=== PATIENT | male | born 1960 ===

== ENCOUNTER 2024-06-25 07:40 | Observation (INO) ==
[~2024-06-25 07:40] MED LIST: Lidocaine 2% PF 5 ML VIAL ONE; Midazolam 2 mg/2 ml VIAL 1 mg/ml 2 ml VIAL (2 mg) ONE; NS 0.45% 1000 ml BAG 1,000 ML IV SCH; Naloxone 0.4 mg VIAL 0.4 mg/ml 1 ml VIAL IV PRN; Ondansetron 4 mg VIAL 2 MG/ML 2 ml VIAL IV PRN; Propofol 10 MG/ML 20 ML BTL ONE; fentaNYL 100 mcg/2 ml 50 MCG/ML VIAL IV PRN; fentaNYL 100 mcg/2 ml 50 MCG/ML VIAL ONE
[2024-06-25] MEDS: Buffered Lidocaine 1% SYRIN 1 ml INTRADERM ONE (08:02)
[2024-06-25] MEDS ORDERED: Chlorhexidine MOUTHWASH 0.12% 15 ML UDC ONE (08:13)
[2024-06-25] MEDS ORDERED: ceFAZolin 2 GM PREMIX 2 GM/50 ML BAG ONE (08:13)
[2024-06-25 08:17] LABS: Rapid COVID-19 Molecular Undetected (Undetected)
[2024-06-25] MEDS: Lactated Ringers 1000 ml BAG 1,000 ML IV SCH ×2 (08:35→14:57)
[2024-06-25] MEDS ORDERED: Thrombin 5,000 UNITS(BOVINE) for Ultrasound Guided Pseudoaneursym ONE (10:02)
[2024-06-25] MEDS ORDERED: Lidocaine 1% w EPI 1:100,000 MDV 20 ML VIAL ONE (10:02)
[2024-06-25] MEDS ORDERED: ceFAZolin VIAL VIAL ONE (10:03)
[2024-06-25] MEDS ORDERED: HYDROmorphone 0.5 MG/0.5 ML SYRINGE ONE ×3 (10:44→12:39)
[2024-06-25] MEDS ORDERED: Senna TAB 8.6 mg TAB PO PRN (13:13)
[2024-06-25] MEDS ORDERED: Ondansetron 4 mg VIAL 2 MG/ML 2 ml VIAL IV PRN (13:13)
[2024-06-25] MEDS ORDERED: Phenol 1.4% Throat Spray BTL MT PRN (13:13)
[2024-06-25] MEDS ORDERED: Morphine 2 MG/ML SYRINGE IV PRN (13:13)
[2024-06-25] MEDS ORDERED: Dextran 70/Hypromellose Tears Eye Drops 15 ml BTL (for Artificials Tears) BOTH EYES PRN (13:13)
[2024-06-25] MEDS ORDERED: Benzocaine/Menthol LOZ MT PRN (13:13)
[2024-06-25] MEDS ORDERED: Calcium Carb (TUMS) 500 mg CHEW TAB PO PRN (13:13)
[2024-06-25] MEDS: Acetaminophen IV 1 GM/100ML 1,000 MG/100 ML BAG IV ONE (15:00)
== END 2024-06-27 10:40 | disposition home or self-care (01) ==
LOC: SSU 07:40 → OR 07:40
PROVIDERS: ADMIT Neurological Surgery; ATTEND Neurological Surgery